=== PATIENT | female | born 1985 | race African-American/Black ===

== ENCOUNTER 2021-12-28 05:25 | Emergency (ER) | payer OTHER ==
[~2021-12-28] VITALS: Ht 162.6 cm; Wt 149.7 kg
[2021-12-28 05:27] VITALS: BP_SYST 123
[2021-12-28] MEDS ORDERED: HYDR-3917 PO (07:07)
[2021-12-28] MEDS ORDERED: IBUP-1969 PO (07:07)
[2021-12-28 07:59] VITALS: BP_SYST 105
== END 2021-12-28 09:00 | disposition home or self-care (01) ==
LOC: SED 05:25
DX: S82.51XA Displaced fracture of medial malleolus of right tibia, initial encounter for closed fracture (principal); Z79.899 Other long term (current) drug therapy; W22.8XXA Striking against or struck by other objects, initial encounter; Y93.89 Activity, other specified; Y92.89 Other specified places as the place of occurrence of the external cause; Y99.8 Other external cause status
CPT/HCPCS: 99284